=== PATIENT | male | born 1955 | race Caucasian/White ===

== ENCOUNTER → 2017-07-27 | Outpatient (CLI) | payer MEDICAID ==
--- NOTE | 2017-07-27 15:34 | RADIOLOGY REPORT PS360 ---
CHEST(2 VIEWS-NOT PORTABLE) HISTORY: COUGH ORDERING PHYSICIAN: Brendon Chery MD PATIENT AGE: 62 years COMPARISON: None available FINDINGS: There is hyperinflation with hyperlucency of the lung consistent with COPD. There is patchy density in the right lung base suspicious for an area of pneumonia. The remaining lungs are clear. No acute bony anomalies. IMPRESSION: COPD with right lower lobe pneumonia.
[2017-07-27 19:08] LABS: URINE BILIRUBIN - DIPSTICK NEGATIVE (NEG); URINE BLOOD NEGATIVE (NEG)
[2017-07-27 19:12] LABS: HEMOGLOBIN 15.7 g/dL (14.1-18.0); LYMPH % 16.5 % (10-50)
[2017-07-27 19:40] LABS: BUN 4 mg/dL (7-18)
[2017-07-27 19:53] LABS: GFR (ESTIMATED) 98 ML/MIN (>60)
[2017-07-27 23:19] LABS: NEUTROPHILS 78 % (42-76)
== END ==
LOC: LAB 15:11 → RAD 15:11
PROVIDERS: Emergency Medicine
DX: R53.83 Other fatigue (principal); R35.0 Frequency of micturition